=== PATIENT | female | born 1965 | race Caucasian/White ===

== ENCOUNTER 2016-11-03 16:12 | Observation (INO) ==
[2016-11-03] MEDS ORDERED: Ondansetron ODT 4 MG TAB.RAPDIS SL PRN (21:01)
[2016-11-03] MEDS ORDERED: Naloxone 0.4 MG/ML INJ IVP PRN (21:01)
[2016-11-03] MEDS ORDERED: *HR* Morphine 2 MG/ML SYRINGE IVP PRN (21:01)
[2016-11-03] MEDS ORDERED: Nitroglycerin 0.4 MG TAB.SUBL SL PRN (21:04)
[2016-11-03] MEDS ORDERED: Melatonin 3 MG TABLET PO SCH (21:15)
--- NOTE | 2016-11-03 21:17 | Internal Med History&Physical ---
Date of Encounter: 11/03/16 Time of Encounter: 21:11 Assessment and Plan (1) Angina pectoris Current visit: No Status: Acute Patient with chest pain which started this morning at rest and was unrelieved by 3 nitro tabs. She was given nitro paste and morphine in the [place] ED which relieved her pain. She has a history of CAD, with a cardiac cath on 09/28 showing occluded mid RCA, with moderate LAD and mild Circ disease, mild left ventricular systolic dysfunction with EF of 45% Troponin negative at 0.00 EKG showed sinus rhythm without ST elevation and no evidence of acute ischemia. Serial troponins for trend continuous alarm security or surveillance monitor Echocardiogram to evaluate cardiac function and for any valvular abnormalities Cardiology consulted. (2) CHF (congestive heart failure) Current visit: No Status: Acute Cardiac Cath on 09/28/16 showed mild left ventricular systolic dysfunction, with EF of 45%. BNP elevated to 544 continue home doses of metoprolol, imdur Qualifiers: Congestive heart failure type: systolic Congestive heart failure chronicity : chronic Qualified Code(s): I50.22 - Chronic systolic (congestive) heart failure (3) Dental decay Current visit: No Status: Acute Patient reported severe dental pain, unable to tolerate food for the last 3 days. She is scheduled for dental surgery in [place] in the next week to extract her teeth. On exam, she has many missing teeth with severe dental caries. Taberg for dental pain, Narcan ordered PRN for respiratory depression Cardiac diet as tolerated (4) Nicotine dependence Current visit: No Status: Acute Patient reports smoking 1/2 pack per day since age 14. Discussed smoking cessation, patient not ready to quit at this time. Nicotine patch TD daily. Qualifiers: Nicotine product type: cigarettes Substance use status: uncomplicated Qualified Code(s): F17.210 - Nicotine dependence, cigarettes, uncomplicated (5) DVT prophylaxis Current visit: Yes Status: Acute Encourage ambulation as tolerated anti-embolic stockings Heparin 5,000u SQ BID Internal Medicine - H&P: HPI Chief complaint: chest pain Admitted From: Intrahospital Transfer Plans for Post Hospital Care: Home History of present illness: Ms. Spicer is a 51 year old female with hypertension, hyperlipidemia, CAD, COPD who presented to [facility] ED with chest pain. She reports the pain started this morning and was sharp, accompanied by nausea and sweats. She took 3 nitro tabs with no relief and so her sister called the squad. She has a history of CAD and had a cardiac cath 09/28/16 which showed occluded mid RCA, moderate LAD disease and mild Circ disease, mild left ventricular systolic dysfunction and EF of 45%. The recommendations at that time were to maximize medical management. She also reports shortness of breath on and off for weeks, occasional palpitations, and severe dental pain resulting in poor oral intake. She reports she is supposed to have surgery in [place] to remove her teeth in the next week. She denies any dizziness, lightheadedness, numbness, tingling, vomiting, abdominal pain or diarrhea. Evaluation in the [place] ED was significant for negative troponin of 0.00, EKG showed sinus rhythm of 49, no evidence of ST elevation, slight widening of QRS, with no evidence of acute ischemia. She had elevated BNP to 544. CXR showed no acute cardiopulmonary process. Patient's chest pain was relieved with administration of nitro paste and morphine. Cardiology was consulted and they recommended admission to [facility] and they plan to see patient tomorrow morning. On exam, she is alert and oriented, in no acute distress, heart has regular rate and rhythm, lungs are clear bilaterally. Past Med Surg Social Fam HX - Past Medical History Medical history: COPD, coronary artery disease, GERD, hyperlipidemia, hypertension, myocardial infarction Psychiatric history: anxiety, depression - Past Surgical History Surgical History: angioplasty/stent, orthopedic, other (right ankle) - Social History Smoking Status: Current every day smoker (19 pack year history) Packs per day: 0.5 Smokeless Tobacco Status: No Alcohol use: none Drug use: none - Family History Mother Race: Living Status: Age at : 76 Cause of : Alzeimers dementia Father Living Status: Age at : 72 Cause of : cancer Internal Medicine - H&P: Meds Aspirin 81 mg PO DAILY 07/16/16 [History] Atorvastatin [Lipitor] 80 mg PO HS 09/28/16 [History] Escitalopram [Lexapro] 10 mg PO DAILY 09/28/16 [History] Nitroglycerin 0.4 mg SL Q5MIN PRN 09/28/16 [History] Omeprazole 40 mg PO DAILY 09/28/16 [History] Ranolazine [Ranexa] 500 mg PO BID #60 tab.er.h 09/28/16 [Rx] Ciprofloxacin/Dex *EAR* Susp [Ciprodex *EAR* Susp] 4 drop RIGHT EAR BID #1 bottle 10/30/16 [Rx] Aclidinium Drury [Tudorza Pressair] 400 mcg IH BID 11/03/16 [History] Albuterol Sulfate [Proair Hfa] 1 puff IH Q4HR PRN 11/03/16 [History] Calcium Carbonate [Calcium] 500 mg PO BID 11/03/16 [History] Isosorbide MONOnitrate (24 HR) [Imdur] 30 mg PO DAILY 11/03/16 [History] Melatonin [Melatin] 3 mg PO HS 11/03/16 [History] Metoprolol [Lopressor] 50 mg PO BID 11/03/16 [History] Nitroglycerin [Nitrostat] 0.4 mg SL PER PKG DI 11/03/16 [History] Allergies Penicillins Allergy (Verified 11/03/16 13:51) Swelling of Lip/Tongue/Throat naproxen [From Naprosyn] Adverse Reaction (Verified 11/03/16 13:51) Anxiety All Systems PM: A 10-system review of systems was performed and is negative for pertinent findings except as documented above in the HPI. - Constitutional Constitutional: no chills, no fever(s), no night sweats - EENT Eyes: no change in vision, no discharge, no pain, no photophobia Ears: ear pain (right ear) Nose, mouth and throat: dental pain, no dysphagia, no nasal discharge, no neck pain, no sore throat - Cardiovascular Cardiovascular ROS IM: chest pain, diaphoresis, dyspnea, no lightheadedness, no palpitations, no syncope - Respiratory Respiratory: dyspnea, no cough, no wheezing, no excessive phlegm production - Gastrointestinal Gastrointestinal: no abdominal pain, no diarrhea, no hematemesis, no hematochezia, no melena, no nausea, no vomiting - Genitourinary Genitourinary: no change in urinary stream, no dysuria, no flank pain, no hematuria - Musculoskeletal Musculoskeletal ROS IM: no numbness, no tingling - Integumentary Integumentary IM: no rash, no unusual bruising - Neurological Neurological ROS: no confusion, no convulsions, no focal weakness, no numbness, no tingling, no tremor(s) - Hematologic/Lymphatic Hematologic/Lymphatic: no easy bruising - Constitutional Vitals: Temp Pulse Resp BP Pulse Ox 98.2 F 54 12 144/78 95 11/03/16 19:16 11/03/16 19:16 11/03/16 19:16 11/03/16 19:16 11/03/16 19:16 General appearance: Present: A&O X 3, no acute distress - Head Head exam: Present: atraumatic, normocephalic - Eye Eye exam: Present: PERRL, conjuntiva pink, sclera anicteric Pupils: Present: PERRL - Neck Neck exam general surgery: Present: supple, trachea midline. Absent: lymphadenopathy - Respiratory Respiratory exam: Present: CTAB. Absent: accessory muscle use, rales, rhonchi, wheezes - Cardiovascular Cardiovascular exam: Present: RRR, +S1, +S2. Absent: diastolic murmur, gallop, rubs, systolic murmur - GI/Abdominal GI/Abdominal exam: Present: normal bowel sounds, soft, no peritoneal signs. Absent: distended, tenderness - Extremities Exam Extremities exam: Present: warm, radial pulses palpable and symetrical. Absent : calf tenderness, cyanotic, pedal edema - Neurological Exam Neurological exam: Present: CN II-XII intact, oriented X3, no focal deficits. Absent: facial droop, speech deficit - Skin Skin exam: Present: dry, intact Internal Med - H&P Results - Labs Labs: From [facility] ED: Troponin: 0.00 BNP 544 WBC 7.5 Hgb 12.3 Hct 36.0 Plt 202 Na 138 K 3.7 Cl 105 CO2 23 BUN 10 Cr 0.57 Glu 91
[2016-11-03] MEDS: Nicotine 14 MG PATCH.TD24 TD SCH (21:47)
[2016-11-03] MEDS: Ranolazine 500 MG TAB.ER.12H PO SCH (22:48)
[2016-11-03] MEDS: *HR* Heparin 5,000 UNIT/ML VIAL SQ SCH (22:48)
[2016-11-03] MEDS: Ciprofloxacin/Dex *EAR* Susp 7.5 ML BOTTLE RIGHT EAR SCH (22:49)
[2016-11-04] MEDS: *HR* HYDROcodone/Acet 5/325 mg TABLET PO PRN ×3 (05:19→14:56)
[2016-11-04] MEDS: *HR* Heparin 5,000 UNIT/ML VIAL SQ SCH (05:41)
[2016-11-04 05:53] LABS: Basophils # 0.1 K/mcL (0.0-0.2); Basophils % 0.9 %; Eosinophils # 0.1 K/mcL (0.0-0.6); Eosinophils % 1.8 %; Hematocrit 35.2 % (35.3-44.9); Hemoglobin 11.5 g/dL (11.5-15.4); Immature Granulocytes % 0.5 % (0-4); Lymphocytes # 2.4 K/mcL (0.6-4.6); Lymphocytes % 36.1 %; Mean Corpuscular HGB Conc 32.7 g/dL (31.6-35.5); Mean Corpuscular Hemoglobin 31.2 pg (28.0-33.3); Mean Corpuscular Volume 95.4 fL (83.0-100.0); Mean Platelet Volume 9.6 fL (9.4-12.4); Monocytes # 0.6 K/mcL (0.0-1.3); Monocytes % 9.1 %; Neutrophils # 3.4 K/mcL (1.6-8.9); Platelet Count 234 K/mcL (140-400); Red Blood Count 3.69 M/mcL (3.82-4.97); Red Cell Distribution Width 13.4 % (11.5-14.5); Segmented Neutrophils % 51.6 %
[2016-11-04 06:12] LABS: BUN/Creatinine Ratio 28 (6-26); Blood Urea Nitrogen 16 mg/dL (7-20); Carbon Dioxide 25 mEq/L (19-29); Chloride 104 mEq/L (98-109); Glucose 98 mg/dL (70-99); Potassium 3.7 mEq/L (3.5-4.5); Sodium 140 mEq/L (136-145); eGFR For African Americans > 60 (> 60); eGFR For Non-African Americans > 60 (> 60)
[2016-11-04 06:13] LABS: Calcium 8.3 mg/dL (8.6-10.8); Osmolality,Calculated 291 (280-300)
[2016-11-04] MEDS ORDERED: Acetaminophen 325 MG TABLET PO PRN (08:34)
[2016-11-04] MEDS ORDERED: Aspirin 81 MG TAB.CHEW PO SCH (09:00)
[2016-11-04] MEDS ORDERED: Isosorbide MONOnitrate (24 HR) 30 MG TAB.ER.24H PO SCH (09:00)
[2016-11-04] MEDS: Nicotine 14 MG PATCH.TD24 TD SCH (09:04)
[2016-11-04] MEDS: Ciprofloxacin/Dex *EAR* Susp 7.5 ML BOTTLE RIGHT EAR SCH (09:06)
[2016-11-04] MEDS: Ranolazine 500 MG TAB.ER.12H PO SCH (09:07)
--- NOTE | 2016-11-04 09:19 | Electrocardiograph Report ---
[facility] Test Date: 2016-11-03 Pat Name: Radha Spicer Department: 2001 Room: 3B49 Gender: F [employer] Labor: [id number] : 1965 Requested By: Neli Melchor Order Number: [id number] Reading MD: Kayden Yanez MD Measurements Intervals [place] Rate: 46 P: 53 ID: [id number] QRS: 9 QRSD: 106 T: -20 QT: 485 QTc: 444 Interpretive Statements SINUS BRADYCARDIA INFERIOR MYOCARDIAL INFARCTION, OF INDETERMINATE AGE Electronically Signed On 11-04-16 09:18:12 EST by Kayden Yanez MD
--- NOTE | 2016-11-04 09:45 | ECHO - Doppler Report ---
Echocardiogram Name: Radha Spicer Date of Study: 11/04/2016 Date: 1965 Ht: 64.0 in Medical Record#: [id number] Age: 51 Wt: 134.0 lb Gender: Female BSA: 1.65 Order #: [id number] Location: [facility] Room #: 3B49 Reading Physician: Manjeet Calderon DO, YULIA, MANJEET BAPTISTE Property Valuer: Katie Rubi RVT, RDJORGE Ordering Physician: Neli Melchor CNP Primary Physician: None Indications: Chest pain Impressions: LVEF 45-50%. Normal LV chamber size and wall thickness. Mild segmental left ventricular systolic dysfunction. Normal right ventricular structure and function. No evidence of pulmonary hypertension. No significant valvular dysfunction. Left Ventricular Wall Motion: Rest Echo Findings The mid inferior and basal inferior tamayo were hypokinetic. All other wall segments showed normal motion. Findings: Study Quality * Technically adequate exam. ECG Findings * Normal sinus rhythm. Left Ventricle * LVEF 45-50%. * Normal LV chamber size and wall thickness. * Mild segmental left ventricular systolic dysfunction. Right Ventricle * Normal right ventricular structure and function. Left Atrium * Mildly dilated left atrium. Right Atrium * Normal right atrial size. Interatrial Septum * Interatrial septum not well evaluated. Aortic Valve * Trileaflet aortic valve with normal function. * No aortic regurgitation. * No aortic stenosis. Mitral Valve * Mildly thickened mitral valve leaflets. * Trace mitral regurgitation. * No mitral stenosis. Tricuspid Valve * Normal tricuspid valve structure and function. * No tricuspid regurgitation. * No evidence of pulmonary hypertension. Pulmonic Valve * Pulmonic valve is not well visualized. * No pulmonic regurgitation. Aorta * Normally sized aortic root. Pericardium * The pericardium appears normal. IVC * Normal IVC dimensions and inspiratory collapse. Pulmonary Artery * Normal visualized portions of the main pulmonary artery. History Hypertension Hypercholesteremia History of Smoking Years 37 Packs 1 Family History of CAD Myocardial Infarction 2016 a Previous Echo was performed. Measurements: BP: 127/ 68 2D Normal Values IVSd: 1.00 cm 0.6 - 1.0 cm LVIDd: 4.90 cm 3.7 - 5.6 cm LVPWd: .90 cm 0.6 - 1.1 cm LVIDs: 3.40 cm 1.5 - 3.6 cm AO: 2.70 cm < 4.0 cm LA: 3.50 cm 2.0 - 4.0cm %FS: 30.60 cm >25 % LA volume: 31 Mitral Valve Peak E:1.00 m/sec Peak A:.32 m/sec E/A Ratio:3.2 Updated by Manjeet Calderon DO, YULIA, MANJEET BAPTISTE on 11/04/2016 9:40:09 AM electronically signed on 11/04/2016 9:41:05 AM with status of Final Wall Motion [place]: 1=Normal, 2=Hypokinesis, 3=Akinesis, 4=Dyskinesis, 5=Aneurysmal, 6=Hyperkinetic, X=Not Visualized (Blank)=Missing
--- NOTE | 2016-11-04 11:12 | Cardiology Consult Note ---
Date of Encounter: 11/04/16 Time of Encounter: 10:30 Assessment and Plan (1) Chest pain Current Visit: Yes Status: Acute Per Cardiology: Atypical chest pain symptoms not relieved with SL nitroglycerin. Symptoms occurred in setting of upper respiratory and suspected ear infection. Chest pain symptoms reproducible upon exam today with palpation and deep inspiration. Troponins negative 2 at 0.01. Echo showed EF remains about baseline 45-50%, no significant valvular abnormalities. I discussed with patient potential for further ischemic evaluation in terms of stress testing versus left heart catheterization, however at this point patient is agreeable to continue to monitor and observe and follow-up in outpatient setting. Keep follow-up as scheduled with Dr. Mendoza in 2 weeks. Discussed and reviewed with Dr. Moeller, will sign off, reconsult as needed. Patient verbalized understanding and agreed with plan. Qualifiers: Chest pain type: chest pain on breathing Qualified Code(s): R07.1 - Chest pain on breathing (2) CAD (coronary artery disease) Current Visit: Yes Status: Chronic Per Cardiology: Known history of CAD with catheterization November 2015 in the setting of acute STEMI with peak troponin of 41.03. Patient underwent PTCA of mid RCA 100% stenosis with residual 50-60% stenosis. Patient actually had recent catheterization September 2016 which showed proximal LAD 40%, mid LAD 40%; ostial circumflex 30%; mid RCA 100% stenosis with faint immature [id number] collaterals noted to a very small right PDA. On aspirin, statin, long-acting nitrate, Ranexa, beta charley. Continue his current medical management and follow-up as outpatient. Qualifiers: Coronary Disease-Associated Artery/Lesion type: [place] artery [place] vs. transplanted heart: [place] heart Associated angina: angina presence unspecified Qualified Code(s): I25.10 - Atherosclerotic heart disease of [place] coronary artery without angina pectoris (3) Bradycardia Current Visit: Yes Status: Acute Per Cardiology: Initially presented with bradycardia with EKG showing heart rate the 40s. Telemetry reviewed with average heart rate past 24 hours 56. Previous cardiology office note reviewed and appears beta charley dose has been adjusted. Previous heart rates running 90s to 100s. We'll decrease Lopressor from 50mg by mouth twice a day to 25 mg by mouth twice a day. Patient to keep a heart rate and blood pressure log and bring to follow-up appointment. (4) Nicotine dependence Current Visit: No Status: Chronic Per Cardiology: Patient reports smoking 1/2 pack per day since age 14. Patient failed Wellbutrin last year due to causing depression. Qualifiers: Nicotine product type: cigarettes Substance use status: uncomplicated Qualified Code(s): F17.210 - Nicotine dependence, cigarettes, uncomplicated (5) Dental decay Current Visit: No Status: Chronic Per Cardiiology: Management per primary service. Patient reported severe dental pain, unable to tolerate food for the last 3 days. She is scheduled for dental surgery in [place] in the next week to extract her teeth. Discussion w patient/family: The assessment and plan as outlined above was discussed with the patient who expressed understanding and agreement. All questions were answered. Thank you for involving us in the care of your patient. Please call with any questions. History of Present Illness Consult date: 11/04/16 Requesting physician: Lewis Du Consult reason: CP Chief complaint: CP History of present illness: Ms. Spicer is a 51 year old female with a relevant past medical history of CAD , hypertension, COPD, and nicotine abuse. Last seen by cardiology by Dr. Mendoza in October 2016 at that time appeared to have medication changes made. Patient reports the past 2 weeks she's been experiencing fever, chills, right ear infection with difficulty hearing, and cough with production of greenish colored sputum. She also reports episodes of diaphoresis. She reports she is currently taking antibiotics. Reports also pending evaluation for teeth extraction. Due to pain with her teeth she's had decreased by mouth intake and difficulty with some nausea. She reports yesterday morning was walking across her house and developed midsternal chest stabbing sensation. She reports eventually became chest heaviness. She took some nitroglycerin 3 with no relief or improvement. Reports the whole episode lasted for a few minutes. She notified her sister who called the squad. Denies any active bleeding or blood loss. Denies any other concerns or complaints. Past Med Surg Social Fam HX - Past Medical History Attestation: Yes The following information was validated with the patient. Source: patient, old records reviewed Medical history: COPD, coronary artery disease, GERD, hyperlipidemia, hypertension, myocardial infarction Psychiatric history: anxiety, depression - Past Surgical History Surgical History: angioplasty/stent, orthopedic, other (right ankle) - Social History Smoking Status: Current every day smoker (19 pack year history) Packs per day: 0.5 Smokeless Tobacco Status: No Alcohol use: none Drug use: none - Family History Mother Race: Living Status: Age at : 76 Cause of : Alzeimers dementia Father Living Status: Age at : 72 Cause of : cancer Medications and Allergies Aspirin 81 mg PO DAILY 07/16/16 [History] Atorvastatin [Lipitor] 80 mg PO HS 09/28/16 [History] Nitroglycerin 0.4 mg SL Q5MIN PRN 09/28/16 [History] Omeprazole 40 mg PO DAILY 09/28/16 [History] Ranolazine [Ranexa] 500 mg PO BID #60 tab.er.12h 09/28/16 [Rx] Ciprofloxacin/Dex *EAR* Susp [Ciprodex *EAR* Susp] 4 drop RIGHT EAR BID #1 bottle 10/30/16 [Rx] Aclidinium [place] [Tudorza Pressair] 400 mcg IH BID 11/03/16 [History] Albuterol Sulfate [Proair Hfa] 1 puff IH Q4HR PRN 11/03/16 [History] Calcium Carbonate/Vitamin D3 [Calcium 600-Vit D3 400 Tablet] 1 each PO DAILY [History] ClonazePAM [Klonopin] 0.25 mg PO TID PRN 11/03/16 [History] Escitalopram [Lexapro] 20 mg PO DAILY 11/03/16 [History] Isosorbide MONOnitrate (24 HR) [Imdur] 30 mg PO DAILY 11/03/16 [History] Lisinopril [Zestril] 10 mg PO DAILY 11/03/16 [History] Melatonin [Melatin] 3 mg PO HS 11/03/16 [History] Metoprolol [Lopressor] 50 mg PO BID 11/03/16 [History] Oxybutynin Chloride [Ditropan Xl] 5 mg PO DAILY 11/03/16 [History] Allergies Penicillins Allergy (Verified 11/03/16 13:51) Swelling of Lip/Tongue/Throat naproxen [From Naprosyn] Adverse Reaction (Verified 11/03/16 13:51) Anxiety tramadol Adverse Reaction (Verified 11/03/16 21:57) Vomiting All Systems Review: A 10-system review of systems was performed and is negative for pertinent findings except as documented above in the HPI. - Constitutional Constitutional: chills, fever(s) - EENT Ears: right: ear pain (Difficulty with hearing) - Cardiovascular Cardiovascular: as per HPI, chest pain with exertion - Respiratory Respiratory: cough Physical Examination Vital Signs, Last 4 Hours Temp Pulse Resp BP Pulse Ox 11/04/16 11:08 97.9 F 62 15 114/66 95 General: Conversant, No Apparent Distress HEENT: Atraumatic, Normocephaly Cardiac: Reg Rate and Rhythm, Normal S1 and S2, No Murmur Lungs: Normal Breath Sounds, No Wheeze, Rales, Rhonchi Neuro: Alert and responsive, No focal deficits noted Abdomen: Soft, Non-Tender Skin: No rashes noted on visualized skin Musculoskeletal: Other (Midsternal chest soreness with palpation and deep inspiration) Extremities: No Edema, Normal Pulses Results 11/04/16 05:03 11/04/16 05:03 Lab Results Laboratory Tests 11/03/16 11/04/16 21:23 05:03 Troponin I 0.01 0.01 Active Medications Acetaminophen (Tylenol) 650 mg PO Q6HR PRN PRN Reason: Pain Stop: 05/06/17 08:35 Acetaminophen/Hydrocodone Bitart ([place] 5-325 Mg) 1 tab PO Q4HR PRN PRN Reason: Moderate Pain (4-6) Stop: 05/05/17 21:02 Last Admin: 11/04/16 09:07 Dose: 1 tab Aspirin (Aspirin) 81 mg PO DAILY [facility] Stop: 05/06/17 09:01 Last Admin: 11/04/16 09:07 Dose: 81 mg Atorvastatin Calcium (Lipitor) 80 mg PO HS [facility] Stop: 05/05/17 21:16 Last Admin: 11/03/16 22:48 Dose: 80 mg Calcium Carbonate (Tums) 500 mg PO BID [facility] Stop: 05/05/17 21:16 Last Admin: 11/04/16 09:07 Dose: Not Given Ciprofloxacin/Dexamethasone (Ciprodex *Ear* Susp) 4 drop RIGHT EAR BID [facility] Stop: 05/05/17 21:16 Last Admin: 11/04/16 09:06 Dose: 4 drop Escitalopram Oxalate (Lexapro) 10 mg PO DAILY [facility] Stop: 05/06/17 09:01 Last Admin: 11/04/16 09:07 Dose: 10 mg Heparin Sodium (Porcine) (Heparin) 5,000 unit SQ Q12HCO [facility] Stop: 05/05/17 21:16 Last Admin: 11/04/16 05:41 Dose: 5,000 unit Isosorbide Mononitrate (Imdur) 30 mg PO DAILY [facility] Stop: 05/06/17 09:01 Last Admin: 11/04/16 09:07 Dose: 30 mg Melatonin (Melatonin) 3 mg PO HS [facility] Stop: 05/05/17 21:16 Last Admin: 11/03/16 22:48 Dose: 3 mg Metoprolol Tartrate (Lopressor) 25 mg PO BID [facility] Stop: 05/05/17 21:16 Morphine Sulfate (Morphine Sulfate) 2 mg IVP Q4HR PRN PRN Reason: Severe Pain (7-10) Stop: 05/05/17 21:02 Last Admin: 11/03/16 22:48 Dose: 2 mg Naloxone HCl (Narcan) 0.4 mg IVP Q2MIN PRN PRN Reason: Opioid Reversal Stop: 05/05/17 21:02 Nicotine (Nicoderm) 14 mg TD DAILY [facility] PRN Reason: Protocol Stop: 05/05/17 21:46 Last Admin: 11/04/16 09:04 Dose: Not Given Nitroglycerin (Nitroglycerin) 0.4 mg SL Q5MIN PRN PRN Reason: Pain Stop: 05/05/17 21:05 Omeprazole (Prilosec) 40 mg PO DAILY [facility] Stop: 05/06/17 09:01 Last Admin: 11/04/16 09:07 Dose: 40 mg Ondansetron HCl (Zofran Odt) 4 mg SL Q8HR PRN PRN Reason: Nausea And Vomiting Stop: 05/05/17 21:02 Ranolazine (Ranexa) 500 mg PO BID [facility] Stop: 05/05/17 21:16 Last Admin: 11/04/16 09:07 Dose: 500 mg - Imaging and Cardiology Chest Xray: report reviewed (No acute cardio pulmonary process) Echo: report reviewed Cardiac cath: report reviewed - EKG Interpretation EKG results cardiology: personally reviewed (No active ischemia appreciated), sinus rhythm, no diagnostic ischemia, right bundle branch block, other (24 hour telemetry reviewed with average heart rate 56, glucose heart rate 31 during nocturnal hours, ECG showed heart rate in the 40s upon arrival) Consult Discharge Plan - Plan Referrals: Rose Chow, ANNAMARIA [Primary Care Provider] -
[2016-11-04] MEDS ORDERED: clonazePAM 0.5 MG TABLET PO PRN (14:35)
[2016-11-04 15:11] VITALS: BP 129/76
--- NOTE | 2016-11-04 16:56 | Discharge Summary ---
Date of Encounter: 11/04/16 Time of Encounter: 16:54 - Discharge Diagnosis (1) Chest pain Priority: Primary Status: Acute Qualifiers: Chest pain type: chest pain on breathing Qualified Code(s): R07.1 - Chest pain on breathing (2) CHF (congestive heart failure) Priority: Secondary Status: Chronic Qualifiers: Congestive heart failure type: systolic Congestive heart failure chronicity : chronic Qualified Code(s): I50.22 - Chronic systolic (congestive) heart failure (3) Right otitis externa Priority: Primary Status: Acute Qualifiers: Otitis externa type: unspecified type Chronicity: acute Qualified Code(s) : H60.501 - Unspecified acute noninfective otitis externa, right ear (4) CAD (coronary artery disease) Priority: Secondary Status: Chronic Qualifiers: Coronary Disease-Associated Artery/Lesion type: [place] artery [place] vs. transplanted heart: [place] heart Associated angina: angina presence unspecified Qualified Code(s): I25.10 - Atherosclerotic heart disease of [place] coronary artery without angina pectoris (5) Dental decay Priority: Secondary Status: Chronic (6) Nicotine dependence Priority: Primary Status: Chronic Qualifiers: Nicotine product type: cigarettes Substance use status: uncomplicated Qualified Code(s): F17.210 - Nicotine dependence, cigarettes, uncomplicated - Discharge Medications Home Medications: Aspirin 81 mg PO DAILY 07/16/16 [History] Atorvastatin [Lipitor] 80 mg PO HS 09/28/16 [History] Nitroglycerin 0.4 mg SL Q5MIN PRN 09/28/16 [History] Omeprazole 40 mg PO DAILY 09/28/16 [History] Ranolazine [Ranexa] 500 mg PO BID #60 tab.er.12h 09/28/16 [Rx] Ciprofloxacin/Dex *EAR* Susp [Ciprodex *EAR* Susp] 4 drop RIGHT EAR BID #1 bottle 10/30/16 [Rx] Aclidinium [place] [Tudorza Pressair] 400 mcg IH BID 11/03/16 [History] Albuterol Sulfate [Proair Hfa] 1 puff IH Q4HR PRN 11/03/16 [History] Calcium Carbonate/Vitamin D3 [Calcium 600-Vit D3 400 Tablet] 1 each PO DAILY [History] ClonazePAM [Klonopin] 0.25 mg PO TID PRN 11/03/16 [History] Escitalopram [Lexapro] 20 mg PO DAILY 11/03/16 [History] Isosorbide MONOnitrate (24 HR) [Imdur] 30 mg PO DAILY 11/03/16 [History] Lisinopril [Zestril] 10 mg PO DAILY 11/03/16 [History] Melatonin [Melatin] 3 mg PO HS 11/03/16 [History] Metoprolol [Lopressor] 50 mg PO BID 11/03/16 [History] Oxybutynin Chloride [Ditropan Xl] 5 mg PO DAILY 11/03/16 [History] Allergies/Adverse Reactions: Allergies Penicillins Allergy (Verified 11/03/16 13:51) Swelling of Lip/Tongue/Throat naproxen [From Naprosyn] Adverse Reaction (Verified 11/03/16 13:51) Anxiety tramadol Adverse Reaction (Verified 11/03/16 21:57) Vomiting Procedures/tests Complete & Pending: Procedures Performed prior 72 hours Category Date Time Status ECG 12 lead ECG [ECG] AM 0600 Y 11/04/16 06:00 Completed EV echocardiogram Routine Y 11/04/16 21:51 Completed Date of admission: 11/03/16 18:31 Primary care physician: Rose Chow CNP Consults: 11/03/16 21:06 Consult to Cardiology [CONS] Routine Comment: Consulting Provider: Cardiology Katie Reason for Consult: Chest pain, angina Call Completed: Yes - Patient Status Disposition: Home, Self-Care Condition: Good Overall status at discharge: patient is back to baseline - Discharge Instructions Instructions: Chest Pain (DC) Follow Up With: Андрей Menodza MD [Partnered Physician] - (f/u in 2 weeks) Rose Chow CNP [Primary Care Provider] - 11/10/16 9:15 am - Diet and Activity Activity: increase activity as tolerated Diet: low fat, low cholesterol Hospital course: Ms. Spicer is a 51 year old female who presented with chest pain and tooth pain, she was seen by cardiology who recommended no inasive cardiology workup as symptoms were not consistent with acute cardiac pathology. Pt is stable and will be discharged to home. She will follow up with dentist outpatient. - Time Spent with Patient Total time spent providing and/or coordinating discharge services: - Constitutional Vitals: Temp Pulse Resp BP Pulse Ox 98.0 F 46 15 129/76 95 01/25/17 15:10 11/04/16 15:10 11/04/16 15:10 11/04/16 15:10 11/04/16 15:10 General appearance: Present: A&O X 3, no acute distress - Head Head exam: Present: atraumatic, normocephalic - Eye Eye exam: Present: PERRL, conjuntiva pink, sclera anicteric Pupils: Present: PERRL - Neck Neck exam general surgery: Present: supple, trachea midline. Absent: lymphadenopathy - Respiratory Respiratory exam: Present: CTAB. Absent: accessory muscle use, rales, rhonchi, wheezes - Cardiovascular Cardiovascular exam: Present: RRR, +S1, +S2. Absent: diastolic murmur, gallop, rubs, systolic murmur - GI/Abdominal GI/Abdominal exam: Present: normal bowel sounds, soft, no peritoneal signs. Absent: distended, tenderness - Extremities Exam Extremities exam: Present: warm, radial pulses palpable and symetrical. Absent : calf tenderness, cyanotic, pedal edema - Neurological Exam Neurological exam: Present: CN II-XII intact, oriented X3, no focal deficits. Absent: pronater drift, facial droop, speech deficit - Skin Skin exam: Present: dry, intact
== END 2016-11-04 17:07 | disposition home or self-care (01) ==
LOC: 3BNU → SUATTDRO 18:31
PROVIDERS: ADMIT Nurse Practitioner Family; ATTEND Family Medicine